=== PATIENT | female | born 1940 | race Caucasian/White ===

== ENCOUNTER 2016-06-19 19:52 | Emergency (ER) | payer MEDICARE, BC ==
[~2016-06-19] VITALS: Ht 149.9 cm; Wt 62.7 kg
[2016-06-19 19:54] VITALS: TEMP 97.7
[2016-06-19] MEDS ORDERED: ARICEPT10 MG PO (20:09)
[2016-06-19] MEDS ORDERED: PRILOSEC 20MG20 MG PO (20:09)
[2016-06-19] MEDS ORDERED: CALCIUM-500 5001 CTB PO (20:10)
[2016-06-19] MEDS ORDERED: SYNTHROID 0.0.025 MG PO (20:10)
[2016-06-19] MEDS ORDERED: TENORMIN 2525 MG/TAB PO (20:11)
[2016-06-19] MEDS ORDERED: VITAMIN D31000 IU PO (20:11)
[2016-06-19] MEDS ORDERED: VITAMIN C500 MG PO (20:11)
[2016-06-19] MEDS ORDERED: CLARITIN 1010 MG/TAB PO (20:12)
[2016-06-19] MEDS ORDERED: THE MEDICINE S200 M2 PO (20:12)
[2016-06-19] MEDS ORDERED: TYLENOL 500MG500 MG PO (20:13)
[2016-06-19] MEDS ORDERED: ZYPREXA 5MG5 MG PO (20:13)
[2016-06-19] MEDS ORDERED: REMERON 15M15 MG/TA1 PO (20:13)
[2016-06-19] MEDS ORDERED: SYSTANE 0.4%-0.1 SOL OP (20:14)
[2016-06-19] MEDS ORDERED: ALBUTEROL1.25 MG/3 IH (20:15)
[2016-06-19] MEDS ORDERED: FLONASEALLERGY NS (20:15)
[2016-06-19 20:48] LABS: BASO % 0.6 % (0.0-2.0); EOS # 0.2 (0.0-0.7); GRAN # 3.8 (1.4-6.5); HEMATOCRIT 40.7 % (37.0-47.0); HEMOGLOBIN 13.4 g/dl (12.5-16.0); LYMPH # 2.2 (1.2-3.4); LYMPH % 31.3 % (20.0-51.0); MEAN CELL VOLUME 92 fl (80.0-100.0); MEAN CORPUSCULAR HEMOGLOBIN 30 pg (27.0-31.0); MEAN CORPUSCULAR HGB CONC 33 g/dl (33.0-37.0); MEAN PLATELET VOLUME 10.5 fl (7.4-10.4); MONO # 0.7 (0.1-0.6); MONO % 9.5 % (1.7-9.3); PLATELET COUNT 188 K/mm3 (130-400); RED BLOOD COUNT 4.43 M/mm3 (4.10-5.30); REDCELL DISTRIBUTION WIDTH-CV 13.3 % (11.5-14.5)
[2016-06-19 20:59] LABS: ADJUSTED CALCIUM 9.6 mg/dL (8.4-10.2); BILIRUBIN,TOTAL 0.4 mg/dL (0.0-1.0); CALCIUM 9.6 mg/dL (8.4-10.2); CREATININE, serum 0.95 mg/dL (0.52-1.25); TOTAL PROTEIN 7.1 gm/dL (6.4-8.2)
[2016-06-19 21:21] LABS: PH 5 (5-8); SQUAMOUS EPITHELIAL 0-2 /hpf; URINE APPEARANCE Clear; URINE BACTERIA None Seen /hpf; URINE BILIRUBIN Negative (NEGATIVE); URINE BLOOD Negative (NEGATIVE); URINE COLOR Yellow; URINE GLUCOSE Negative (NEGATIVE); URINE KETONE Negative (NEGATIVE); URINE RBC 0-2 /hpf; URINE UROBILINOGEN Negative (NEGATIVE); URINE WBC 0-2 /hpf
[2016-06-19 23:00] VITALS: BP 131/77; PULSE 71
== END 2016-06-19 23:00 | disposition home or self-care (01) ==
LOC: COL.ER 19:52
PROVIDERS: Emergency Medicine
DX: S63.502A Unspecified sprain of left wrist, initial encounter (principal); W18.30XA Fall on same level, unspecified, initial encounter; Y92.129 Unspecified place in nursing home as the place of occurrence of the external cause; F03.90 Unspecified dementia, unspecified severity, without behavioral disturbance, psychotic disturbance, mood disturbance, and anxiety
CPT/HCPCS: J1885

== ENCOUNTER → 2019-12-05 | Outpatient (CLI) | payer MEDICARE, BC ==
[~2019-12-05] MED LIST: ALBUTEROL1.25 MG/3 IH; ARICEPT10 MG PO; CALCIUM-500 5001 CTB PO; CLARITIN 1010 MG/TAB PO; FLONASEALLERGY NS; PRILOSEC 20MG20 MG PO; REMERON 15M15 MG/TA1 PO; SYNTHROID 0.0.025 MG PO; SYSTANE 0.4%-0.1 SOL OP; TENORMIN 2525 MG/TAB PO; THE MEDICINE S200 M2 PO; TYLENOL 500MG500 MG PO; VITAMIN C500 MG PO; VITAMIN D31000 IU PO; ZYPREXA 5MG5 MG PO
== END ==
LOC: ZCOL.LAB 17:06
DX: R50.81 Fever presenting with conditions classified elsewhere (principal); Z20.828 Contact with and (suspected) exposure to other viral communicable diseases

== ENCOUNTER → 2020-02-03 | Outpatient (CLI) | payer MEDICARE, BC ==
[2020-02-03 12:20] LABS: HEMATOCRIT 40.2 % (37.0-47.0); HEMOGLOBIN 12.6 g/dl (12.5-16.0); MEAN CELL VOLUME 94 fl (80.0-100.0); MEAN CORPUSCULAR HEMOGLOBIN 29 pg (27.0-31.0); MEAN CORPUSCULAR HGB CONC 31 g/dl (33.0-37.0); PLATELET COUNT 270 K/mm3 (130-400); REDCELL DISTRIBUTION WIDTH-CV 14.7 % (11.5-14.5)
[2020-02-03 12:21] LABS: ALBUMIN 3.6 gm/dL (3.5-5.0); BILIRUBIN,TOTAL 0.4 mg/dL (0.0-1.0); CALCIUM 9.5 mg/dL (8.4-10.2); CREATININE, serum 1.1 (0.52-1.25); POTASSIUM 4.3 mmol/L (3.4-5.0); TOTAL PROTEIN 6.7 gm/dL (6.4-8.2)
[2020-02-03 12:52] LABS: TSH w REFLEX 2.1 uIU/mL (0.465-4.680)
[2020-02-03 13:00] LABS: ANISOCYTOSIS 1+; BAND 2 % (0-10); EOSINOPHIL 1 % (0-4); HYPOCHROMIA 2+; LYMPHOCYTE 19 % (20.0-51.0); MYELOCYTE 1 % (0-0); NEUTROPHILS 68 % (42.0-75.2); PLATELET ESTIMATE NORMAL (NORMAL)
== END ==
LOC: ZCOL.LAB 11:48
PROVIDERS: Internal Medicine
DX: N39.0 Urinary tract infection, site not specified (principal); E03.9 Hypothyroidism, unspecified; G30.1 Alzheimer's disease with late onset

== ENCOUNTER → 2021-07-17 | Outpatient (CLI) | payer MEDICARE, BC ==
[2021-07-17 18:00] LABS: COLLECTION METHOD CLEAN CATCH
[2021-07-17 18:29] LABS: MUCOUS Present (NOT PRESENT); PH 8 (5-8); SQUAMOUS EPITHELIAL None Seen /hpf (0-10); URINE APPEARANCE Turbid (CLEAR/HAZY); URINE BACTERIA Rare /hpf (NONE SEEN); URINE BILIRUBIN Positive (NEGATIVE); URINE BLOOD Negative (NEGATIVE); URINE COLOR Amber (YELLOW); URINE GLUCOSE Negative (NEGATIVE); URINE KETONE Negative (NEGATIVE); URINE LEUKOCYTE ESTERASE 3+ (NEGATIVE); URINE NITRATE Negative (NEGATIVE); URINE PROTEIN(semi-quant) 2+ (NEGATIVE); URINE TRIPLE PHOSPHATE CRYSTAL Present (NOT PRESENT); URINE UROBILINOGEN Negative (NEGATIVE); URINE WBC >50 /hpf (0-2)
== END ==
LOC: ZCOL.LAB 17:53
PROVIDERS: Internal Medicine
DX: N39.0 Urinary tract infection, site not specified (principal)